=== PATIENT | female | born 1965 | race Hispanic/Latino ===

== ENCOUNTER 2016-10-04 01:20 | Emergency (ER) | payer OTHER ==
[~2016-10-04] VITALS: Ht 167.6 cm; Wt 135.0 kg
[~2016-10-04 01:20] MED LIST: ABILIFY10 MG PO; ALPRAZOLAM0.5 M1 PO; AMOX/K CLAV875 M1 PO; AMOXIL500 MG OR; ATENOLOL50 MG PO; BUSPIRONE15 MG PO; CEPHALEXIN500 M1 PO; CIPRO500 MG OR; CLONAZEPAM0.5 MG PO; CYMBALTA30 MG PO; DOXYCYC MONO100 M1 OR; DOXYCYCL HYC100 MG OR; FLAGYL500 MG OR; FLONASE NASAL50 MCG; FLUOXETINE20 MG PO; FUROSEMIDE20 MG PO; GABAPENTIN300 M2 PO; HYDROCHLORO25 MG/TAB PO; HYDROCHLOROT25 MG PO; LEVOTHYROXIN100 MCG PO; LEVOTHYROXIN150 MC1 PO; LEVOTHYROXIN175 MC1 PO; LEVOTHYROXIN200 MC2 PO; LEVOTHYROXIN200 MCG PO; LEVOTHYROXIN50 MC1 PO; LEVOTHYROXINE300 MCG PO; LISINOPRIL10 MG PO; LITHIUM CARB300 MG PO; LORTAB 10 OR; LORTAB 5 OR; METFORMIN500 MG PO; MIRALAX3350 NF OR; MOTRIN800 MG PO; NAPROSYN500 MG PO; NEXIUM40 M1 PO; NO HOME MEDS; OXCARBAZEPINE600 MG PO; PENICILLN VK500 MG OR; PREDNISONE20 MG OR; PRILOSEC40 MG PO; PROMETHAZINE25 MG PO; PROTONIX40 M2 PO; RISPERDAL1 MG PO; ROBITUSSIN AC10 ML OR; SYNTHROID150 MCG PO; SYNTHROID300 MCG; SYNTHROID50 MCG; TAM75CAP PO; TESSALON PER100 MG PO; TRAZODONE50 MG PO; ULTRAM50 M1 PO; VALIUM5 MG PO; VENLAFAXINE37.5 M1 PO; VENTOLIN HF1 IN; ZITHROMAX250 MG PO
[2016-10-04] MEDS ORDERED: TRAMADOL HCL50 MG PO (01:32)
[2016-10-04 01:51] LABS: URINE BILIRUBIN - DIPSTICK NEGATIVE (NEGATIVE); URINE BLOOD DIPSTICK NEGATIVE (NEGATIVE); URINE CLARITY CLEAR; URINE COLOR YELLOW; URINE GLUCOSE - DIPSTICK NEGATIVE (NEGATIVE); URINE KETONE NEGATIVE (NEGATIVE); URINE LEUK ESTERASE NEGATIVE (NEGATIVE); URINE NITRITE - DIPSTICK NEGATIVE (Negative); URINE PH 6.5 (4.5-8.0); URINE PROTEIN - DIPSTICK NEGATIVE (NEG-TRACE); URINE SPECIFIC GRAVITY 1.015; URINE UROBILINOGEN - DIPSTICK 0.2 E.U./dL (0.2)
[2016-10-04 02:28] LABS: HEMATOCRIT 38.8 % (37.0-47.0); HEMOGLOBIN 12.1 g/dl (12.0-16.0); IMMATURE GRANULOCYTES 0.5 % (0.0-1.0); MEAN CELL VOLUME 81.5 fL CALC (80.0-100.0); MEAN CORPUSCULAR HGB 25.4 pG CALC (26.0-32.0); MEAN CORPUSCULAR HGB CONC 31.2 g/L CALC (32.0-36.0); NEUT# 7.59 thou/uL (2.00-7.15); RED BLOOD COUNT 4.76 mill/uL (4.20-5.60); RED CELL DISTRI WIDTH 14.3 % (11.5-15.5)
[2016-10-04 02:46] LABS: ALBUMIN 4.2 g/dL (3.2-5.0); ALKALINE PHOSPHATASE 176 u/l (38-126); ANION GAP 10 (6-22 (CALC)); BILIRUBIN, TOTAL 0.5 mg/dL (0.0-1.4); BUN 17 mg/dL (7-17); BUN/CREATININE RATIO 24 (12-20 (CALC)); CALCIUM 9.6 mg/dL (8.4-10.2); CARBON DIOXIDE 30 mmol/l (22-30); CHLORIDE 102 mmol/l (95-108); CREATININE 0.7 mg/dL (0.5-1.0); GFR > 60 ML/MIN (>=60 (CALC)); GFR FOR AFR.AMER. > 60 ML/MIN (>=60 (CALC)); GLUCOSE 176 mg/dL (65-105); POTASSIUM 4.3 mmol/l (3.5-5.1); SGOT/AST 50 u/l (14-36); SGPT/ALT 61 u/l (9-52); SODIUM 138 mmol/l (137-146); TOTAL PROTEIN 7.9 g/dL (6.3-8.2)
[2016-10-04 03:15] LABS: AMYLASE 48 u/l (30-110); LIPASE 82 u/l (23-300)
[2016-10-04] MEDS ORDERED: XANAX0.25 MG PO (03:22)
[2016-10-04] MEDS ORDERED: ZOFRAN ODT4 MG PO (03:22)
[2016-10-04 03:50] VITALS: BP 154/79
== END 2016-10-04 03:50 | disposition home or self-care (01) | DRG 880 ==
LOC: ED 01:20
PROVIDERS: Emergency Medicine
DX: F41.9 Anxiety disorder, unspecified (principal); I10 Essential (primary) hypertension; E03.9 Hypothyroidism, unspecified; R42 Dizziness and giddiness; R11.0 Nausea; R50.9 Fever, unspecified; R94.31 Abnormal electrocardiogram [ECG] [EKG]

== ENCOUNTER 2016-11-19 02:04 | Observation (INO) | payer OTHER ==
[2016-11-19] VITALS (7 sets, daily range): BP systolic 93–171; BP diastolic 50–92
[~2016-11-19] VITALS: Ht 167.6 cm; Wt 132.0 kg
[~2016-11-19 02:04] MED LIST changes: +TRAMADOL HCL50 MG PO; +XANAX0.25 MG PO; +ZOFRAN ODT4 MG PO
[2016-11-19] MEDS ORDERED: DICLOFENAC SODI75 MG PO (02:19)
[2016-11-19] MEDS ORDERED: TEMAZEPAM30 MG PO (02:20)
[2016-11-19] MEDS ORDERED: LISINOPRIL20 MG PO (02:20)
[2016-11-19 02:49] LABS: HEMATOCRIT 37.6 % (37.0-47.0); HEMOGLOBIN 11.8 g/dl (12.0-16.0); IMMATURE GRANULOCYTES 0.3 % (0.0-1.0); MEAN CELL VOLUME 81.7 fL CALC (80.0-100.0); MEAN CORPUSCULAR HGB 25.7 pG CALC (26.0-32.0); MEAN CORPUSCULAR HGB CONC 31.4 g/L CALC (32.0-36.0); NEUT# 5.58 thou/uL (2.00-7.15); RED BLOOD COUNT 4.6 mill/uL (4.20-5.60); RED CELL DISTRI WIDTH 14.9 % (11.5-15.5)
[2016-11-19 03:07] LABS: ALBUMIN 3.9 g/dL (3.2-5.0); ALKALINE PHOSPHATASE 171 u/l (38-126); ANION GAP 15 (6-22 (CALC)); BILIRUBIN, TOTAL 0.4 mg/dL (0.0-1.4); BUN 17 mg/dL (7-17); BUN/CREATININE RATIO 29 (12-20 (CALC)); CALCIUM 8.9 mg/dL (8.4-10.2); CARBON DIOXIDE 22 mmol/l (22-30); CHLORIDE 104 mmol/l (95-108); CREATININE 0.6 mg/dL (0.5-1.0); GFR > 60 ML/MIN (>=60 (CALC)); GFR FOR AFR.AMER. > 60 ML/MIN (>=60 (CALC)); GLUCOSE 210 mg/dL (65-105); POTASSIUM 4.3 mmol/l (3.5-5.1); PROTHROMBIN TIME 10.3 SECONDS (9.0-12.5); SGOT/AST 54 u/l (14-36); SGPT/ALT 52 u/l (9-52); SODIUM 137 mmol/l (137-146); TOTAL PROTEIN 7.4 g/dL (6.3-8.2)
[2016-11-19 03:18] LABS: MYOGLOBIN 16 ng/mL (0 - 62)
[2016-11-19 04:52] LABS: URINE BILIRUBIN - DIPSTICK NEGATIVE (NEGATIVE); URINE BLOOD DIPSTICK MODERATE (NEGATIVE); URINE CLARITY CLEAR; URINE COLOR YELLOW; URINE GLUCOSE - DIPSTICK NEGATIVE (NEGATIVE); URINE KETONE NEGATIVE (NEGATIVE); URINE LEUK ESTERASE NEGATIVE (NEGATIVE); URINE NITRITE - DIPSTICK NEGATIVE (Negative); URINE PH 5.5 (4.5-8.0); URINE PROTEIN - DIPSTICK NEGATIVE (NEG-TRACE); URINE SPECIFIC GRAVITY >=1.030; URINE UROBILINOGEN - DIPSTICK 0.2 E.U./dL (0.2)
[2016-11-19 04:55] LABS: BARBITURATES NEGATIVE (NEGATIVE); COCAINE NEGATIVE (NEGATIVE); METHADONE NEGATIVE (NEGATIVE); OXCYCODONE NEGATIVE (NEGATIVE); TETRAHYDROCANNABIONOL NEGATIVE (NEGATIVE); TRICYLIC ANTIDEPRESSANTS NEGATIVE (NEGATIVE)
[2016-11-19 05:03] LABS: URINE BACTERIA RARE hpf; URINE SQUAMOUS EPITHELIAL CELL RARE EPI/hpf (0-FEW); URINE WBC 0-2 WBC/hpf (0-5)
[2016-11-20 04:06] VITALS: BP 125/60
[2016-11-20 05:10] LABS: HEMATOCRIT 39.4 % (37.0-47.0); IMMATURE GRANULOCYTES 0.3 % (0.0-1.0); MEAN CELL VOLUME 84.5 fL CALC (80.0-100.0); MEAN CORPUSCULAR HGB 25.8 pG CALC (26.0-32.0); MEAN CORPUSCULAR HGB CONC 30.5 g/L CALC (32.0-36.0); NEUT# 3.94 thou/uL (2.00-7.15); RED BLOOD COUNT 4.66 mill/uL (4.20-5.60); RED CELL DISTRI WIDTH 14.9 % (11.5-15.5)
[2016-11-20 05:16] LABS: ANION GAP 13 (6-22 (CALC)); BUN 14 mg/dL (7-17); BUN/CREATININE RATIO 24 (12-20 (CALC)); CALCIUM 9.3 mg/dL (8.4-10.2); CARBON DIOXIDE 28 mmol/l (22-30); CHLORIDE 100 mmol/l (95-108); CREATININE 0.6 mg/dL (0.5-1.0); GFR > 60 ML/MIN (>=60 (CALC)); GFR FOR AFR.AMER. > 60 ML/MIN (>=60 (CALC)); GLUCOSE 168 mg/dL (65-105); POTASSIUM 4.5 mmol/l (3.5-5.1); SODIUM 137 mmol/l (137-146)
[2016-11-20 07:30] VITALS: BP 124/71
[2016-11-20 11:23] VITALS: BP 129/80
[2016-11-20 11:59] LABS: TSH, 3RD GENERATION 3.25 uIU/mL (0.47 - 4.68)
[2016-11-20 15:08] VITALS: BP 137/86
[2016-11-20 20:15] VITALS: BP 152/79
[2016-11-21 00:30] VITALS: BP 121/61
[2016-11-21 04:50] VITALS: BP 133/75
[2016-11-21 06:09] LABS: CHOLESTEROL HDL RATIO 4.5 (<4.4 (CALC))
[2016-11-21 07:50] VITALS: BP 136/81
[2016-11-21 11:07] VITALS: BP 133/72
[2016-11-21] MEDS ORDERED: LIPITOR20 MG PO (11:54)
[2016-11-21] MEDS ORDERED: TRAMADOL HCL50 MG PO (11:54)
[2016-11-21] MEDS ORDERED: GLUCOPHAGE500 MG PO (11:54)
== END 2016-11-21 12:38 | disposition home or self-care (01) | DRG 556 ==
LOC: ENPENDDIS → ED 02:04 → ED-I 04:00 → ED 04:54 → MS2 04:55
PROVIDERS: Emergency Medicine; Internal Medicine; Nurse Practitioner Family; ADMIT Internal Medicine; ATTEND Internal Medicine
DX: M79.7 Fibromyalgia (principal); Z68.42 Body mass index [BMI] 45.0-49.9, adult; I10 Essential (primary) hypertension; F45.0 Somatization disorder; E11.9 Type 2 diabetes mellitus without complications; J45.909 Unspecified asthma, uncomplicated; E03.9 Hypothyroidism, unspecified; F41.9 Anxiety disorder, unspecified; F32.9 Major depressive disorder, single episode, unspecified; E66.01 Morbid (severe) obesity due to excess calories; G47.00 Insomnia, unspecified; Z91.14 Patient's other noncompliance with medication regimen; Z79.84 Long term (current) use of oral hypoglycemic drugs; Z82.61 Family history of arthritis
CPT/HCPCS: G0378

== ENCOUNTER 2016-12-28 00:06 | Observation (INO) | payer OTHER ==
[~2016-12-28] VITALS: Ht 167.6 cm; Wt 128.2 kg
[~2016-12-28 00:06] MED LIST changes: +DICLOFENAC SODI75 MG PO; +GLUCOPHAGE500 MG PO; +LIPITOR20 MG PO; +LISINOPRIL20 MG PO; +TEMAZEPAM30 MG PO
[2016-12-28 00:39] LABS: HEMATOCRIT 38.1 % (37.0-47.0); HEMOGLOBIN 12.4 g/dl (12.0-16.0); IMMATURE GRANULOCYTES 0.4 % (0.0-1.0); MEAN CELL VOLUME 82.5 fL CALC (80.0-100.0); MEAN CORPUSCULAR HGB 26.8 pG CALC (26.0-32.0); MEAN CORPUSCULAR HGB CONC 32.5 g/L CALC (32.0-36.0); NEUT# 15.6 thou/uL (2.00-7.15); RED BLOOD COUNT 4.62 mill/uL (4.20-5.60); RED CELL DISTRI WIDTH 14.6 % (11.5-15.5)
[2016-12-28 00:46] LABS: ALBUMIN 4.2 g/dL (3.2-5.0); ALKALINE PHOSPHATASE 194 u/l (38-126); ANION GAP 20 (6-22 (CALC)); BILIRUBIN, TOTAL 0.6 mg/dL (0.0-1.4); BUN 13 mg/dL (7-17); BUN/CREATININE RATIO 22 (12-20 (CALC)); CALCIUM 9.7 mg/dL (8.4-10.2); CARBON DIOXIDE 20 mmol/l (22-30); CHLORIDE 103 mmol/l (95-108); CREATININE 0.6 mg/dL (0.5-1.0); GFR > 60 ML/MIN (>=60 (CALC)); GFR FOR AFR.AMER. > 60 ML/MIN (>=60 (CALC)); GLUCOSE 301 mg/dL (65-105); POTASSIUM 4.4 mmol/l (3.5-5.1); SGOT/AST 58 u/l (14-36); SGPT/ALT 83 u/l (9-52); SODIUM 139 mmol/l (137-146); TOTAL PROTEIN 7.8 g/dL (6.3-8.2)
[2016-12-28] MEDS ORDERED: METFORMIN1000 MG PO (00:54)
[2016-12-28] MEDS ORDERED: LEVOTHYROXINE300 MCG PO (00:55)
[2016-12-28 01:00] LABS: MYOGLOBIN 22 ng/mL (0 - 62)
[2016-12-28 01:11] LABS: URINE BILIRUBIN - DIPSTICK NEGATIVE (NEGATIVE); URINE BLOOD DIPSTICK NEGATIVE (NEGATIVE); URINE CLARITY CLEAR; URINE COLOR YELLOW; URINE GLUCOSE - DIPSTICK >=1000 mg/dL (NEGATIVE); URINE KETONE NEGATIVE (NEGATIVE); URINE LEUK ESTERASE NEGATIVE (NEGATIVE); URINE NITRITE - DIPSTICK NEGATIVE (Negative); URINE PROTEIN - DIPSTICK NEGATIVE (NEG-TRACE); URINE SPECIFIC GRAVITY 1.015; URINE UROBILINOGEN - DIPSTICK 0.2 E.U./dL (0.2)
[2016-12-28 01:57] LABS: TSH, 3RD GENERATION 0.11 uIU/mL (0.47 - 4.68)
[2016-12-28 04:34] LABS: BARBITURATES NEGATIVE (NEGATIVE); COCAINE NEGATIVE (NEGATIVE); METHADONE NEGATIVE (NEGATIVE); OXCYCODONE NEGATIVE (NEGATIVE); TETRAHYDROCANNABIONOL NEGATIVE (NEGATIVE); TRICYLIC ANTIDEPRESSANTS NEGATIVE (NEGATIVE)
[2016-12-28 04:50] VITALS: BP 143/91
[2016-12-28 06:31] LABS: CHOLESTEROL HDL RATIO 3.7 (<4.4 (CALC)); MAGNESIUM 1.8 mg/dL (1.6-2.3)
[2016-12-28 08:55] VITALS: BP 136/72
[2016-12-28 11:23] VITALS: BP 121/72
[2016-12-28 15:47] VITALS: BP 131/76
[2016-12-28 19:15] VITALS: BP 157/86
[2016-12-28 23:35] VITALS: BP 130/90
[2016-12-29 04:25] VITALS: BP 131/85
[2016-12-29 05:28] LABS: HEMATOCRIT 36.8 % (37.0-47.0); HEMOGLOBIN 11.8 g/dl (12.0-16.0); IMMATURE GRANULOCYTES 0.5 % (0.0-1.0); MEAN CELL VOLUME 83.3 fL CALC (80.0-100.0); MEAN CORPUSCULAR HGB 26.7 pG CALC (26.0-32.0); MEAN CORPUSCULAR HGB CONC 32.1 g/L CALC (32.0-36.0); NEUT# 7.7 thou/uL (2.00-7.15); RED BLOOD COUNT 4.42 mill/uL (4.20-5.60); RED CELL DISTRI WIDTH 14.7 % (11.5-15.5)
[2016-12-29 05:39] LABS: ANION GAP 14 (6-22 (CALC)); BUN 13 mg/dL (7-17); BUN/CREATININE RATIO 23 (12-20 (CALC)); CALCIUM 9.4 mg/dL (8.4-10.2); CARBON DIOXIDE 27 mmol/l (22-30); CHLORIDE 100 mmol/l (95-108); CREATININE 0.5 mg/dL (0.5-1.0); GFR > 60 ML/MIN (>=60 (CALC)); GFR FOR AFR.AMER. > 60 ML/MIN (>=60 (CALC)); GLUCOSE 167 mg/dL (65-105); MAGNESIUM 1.7 mg/dL (1.6-2.3); POTASSIUM 4.4 mmol/l (3.5-5.1); SODIUM 137 mmol/l (137-146)
[2016-12-29] MEDS ORDERED: SYNTHROID100 MCG PO (08:35)
[2016-12-29 09:07] VITALS: BP 131/85
== END 2016-12-29 11:00 | disposition home or self-care (01) | DRG 313 ==
LOC: ED 00:06 → ED-I 03:53 → ED 04:09 → MS2 04:10
PROVIDERS: Emergency Medicine; Nurse Practitioner Family; ADMIT Internal Medicine; ATTEND Internal Medicine
DX: R07.2 Precordial pain (principal); E11.65 Type 2 diabetes mellitus with hyperglycemia; I10 Essential (primary) hypertension; Z68.42 Body mass index [BMI] 45.0-49.9, adult; R00.2 Palpitations; J45.909 Unspecified asthma, uncomplicated; E03.9 Hypothyroidism, unspecified; F41.9 Anxiety disorder, unspecified; F32.9 Major depressive disorder, single episode, unspecified; E78.5 Hyperlipidemia, unspecified; M79.7 Fibromyalgia; G47.00 Insomnia, unspecified; E66.9 Obesity, unspecified; G89.29 Other chronic pain; M54.9 Dorsalgia, unspecified; E05.80 Other thyrotoxicosis without thyrotoxic crisis or storm; T38.1X5A Adverse effect of thyroid hormones and substitutes, initial encounter; D72.828 Other elevated white blood cell count; Z79.84 Long term (current) use of oral hypoglycemic drugs; Z91.14 Patient's other noncompliance with medication regimen
CPT/HCPCS: G0378; Q9967

== ENCOUNTER 2017-10-12 18:27 | Observation (INO) | payer OTHER ==
[~2017-10-12] VITALS: Ht 165.1 cm; Wt 121.6 kg
[~2017-10-12 18:27] MED LIST changes: +METFORMIN1000 MG PO; +SYNTHROID100 MCG PO
[2017-10-12 19:32] LABS: HEMATOCRIT 40.4 % (37.0-47.0); HEMOGLOBIN 13.1 g/dl (12.0-16.0); IMMATURE GRANULOCYTES 0.3 % (0.0-1.0); MEAN CELL VOLUME 87.1 fL CALC (80.0-100.0); MEAN CORPUSCULAR HGB 28.2 pG CALC (26.0-32.0); MEAN CORPUSCULAR HGB CONC 32.4 g/L CALC (32.0-36.0); NEUT# 7.49 thou/uL (2.00-7.15); RED BLOOD COUNT 4.64 mill/uL (4.20-5.60); RED CELL DISTRI WIDTH 13.2 % (11.5-15.5)
[2017-10-12 20:03] LABS: URINE BILIRUBIN - DIPSTICK NEGATIVE (NEGATIVE); URINE BLOOD DIPSTICK NEGATIVE (NEGATIVE); URINE COLOR YELLOW; URINE GLUCOSE - DIPSTICK NEGATIVE (NEGATIVE); URINE KETONE NEGATIVE (NEGATIVE); URINE LEUK ESTERASE NEGATIVE (NEGATIVE); URINE NITRITE - DIPSTICK NEGATIVE (Negative); URINE PH 5.5 (4.5-8.0); URINE PROTEIN - DIPSTICK NEGATIVE (NEG-TRACE); URINE UROBILINOGEN - DIPSTICK 0.2 E.U./dL (0.2)
[2017-10-12 20:06] LABS: URINE CLARITY CLEAR
[2017-10-12 20:13] LABS: ACT PARTIAL THROMBO TIME 25.3 SECONDS (20.0-32.5); D-DIMER 0.64 mg/L (0.19-0.60); INTERNATIONAL NORMALIZED RATIO 0.9 RATIO (0.7-1.3); PROTHROMBIN TIME 10.3 SECONDS (9.0-12.5)
[2017-10-12 20:35] LABS: ALBUMIN 4.3 g/dL (3.2-5.0); ALKALINE PHOSPHATASE 164 u/l (38-126); ANION GAP 13 (6-22 (CALC)); BILIRUBIN, TOTAL 0.5 mg/dL (0.0-1.4); BUN 17 mg/dL (7-17); BUN/CREATININE RATIO 24 (12-20 (CALC)); CARBON DIOXIDE 27 mmol/l (22-30); CHLORIDE 99 mmol/l (95-108); CREATININE 0.7 mg/dL (0.5-1.0); GFR > 60 ML/MIN (>=60 (CALC)); GFR FOR AFR.AMER. > 60 ML/MIN (>=60 (CALC)); POTASSIUM 4.3 mmol/l (3.5-5.1); SGOT/AST 26 u/l (14-36); SGPT/ALT 40 u/l (9-52); SODIUM 135 mmol/l (137-146); TOTAL PROTEIN 8.1 g/dL (6.3-8.2)
[2017-10-12 20:47] LABS: MYOGLOBIN 18 ng/mL (0 - 62)
[2017-10-13] VITALS (7 sets, daily range): BP systolic 112–143; BP diastolic 66–88
[2017-10-13 04:38] LABS: CHOLESTEROL HDL RATIO 3.8 (<4.4 (CALC))
[2017-10-13] MEDS ORDERED: ASPIRIN CHEWABL81 MG PO (11:05)
[2017-10-13] MEDS ORDERED: METFORMIN1000 MG PO (11:06)
[2017-10-13] MEDS ORDERED: JARDIANCE25 MG PO (11:07)
[2017-10-14 03:56] VITALS: BP 109/70
[2017-10-14 07:24] VITALS: BP 116/56
[2017-10-14 11:00] VITALS: BP 126/79
== END 2017-10-14 12:07 | disposition home or self-care (01) | DRG 882 ==
LOC: ED 18:27 → ED-I 23:13 → ED 23:41 → MS2 23:42
PROVIDERS: Family Medicine; ADMIT Internal Medicine; ATTEND Internal Medicine
DX: F43.9 Reaction to severe stress, unspecified (principal); I16.0 Hypertensive urgency; I10 Essential (primary) hypertension; Z68.41 Body mass index [BMI] 40.0-44.9, adult; M79.7 Fibromyalgia; E03.9 Hypothyroidism, unspecified; E11.69 Type 2 diabetes mellitus with other specified complication; E78.5 Hyperlipidemia, unspecified; F31.9 Bipolar disorder, unspecified; F41.9 Anxiety disorder, unspecified; J45.909 Unspecified asthma, uncomplicated; E66.9 Obesity, unspecified; F45.0 Somatization disorder; Z91.14 Patient's other noncompliance with medication regimen; Z79.84 Long term (current) use of oral hypoglycemic drugs; R07.9 Chest pain, unspecified
CPT/HCPCS: G0378; Q9967

== ENCOUNTER 2018-03-21 09:24 | Emergency (ER) | payer OTHER ==
[~2018-03-21] VITALS: Ht 165.1 cm; Wt 119.0 kg
[~2018-03-21 09:24] MED LIST changes: +ASPIRIN CHEWABL81 MG PO; +JARDIANCE25 MG PO
[2018-03-21] MEDS ORDERED: FLOXIN OTIC0.3 % AS (10:24)
[2018-03-21 10:35] VITALS: BP 143/89
== END 2018-03-21 10:40 | disposition home or self-care (01) ==
LOC: ED 09:24
DX: T16.2XXA Foreign body in left ear, initial encounter (principal); H92.02 Otalgia, left ear; X58.XXXA Exposure to other specified factors, initial encounter; Y93.E8 Activity, other personal hygiene; Y92.009 Unspecified place in unspecified non-institutional (private) residence as the place of occurrence of the external cause

== ENCOUNTER 2018-07-22 08:18 | Emergency (ER) | payer OTHER ==
[~2018-07-22] VITALS: Ht 165.1 cm; Wt 117.0 kg
[~2018-07-22 08:18] MED LIST changes: +FLOXIN OTIC0.3 % AS
[2018-07-22 11:05] VITALS: BP 129/74
== END 2018-07-22 11:05 | disposition home or self-care (01) ==
LOC: ED 08:18
DX: S76.912A Strain of unspecified muscles, fascia and tendons at thigh level, left thigh, initial encounter (principal); M89.8X5 Other specified disorders of bone, thigh; M79.605 Pain in left leg; M16.12 Unilateral primary osteoarthritis, left hip

== ENCOUNTER 2018-11-05 12:02 | Emergency (ER) | payer OTHER ==
[~2018-11-05] VITALS: Ht 165.1 cm; Wt 105.0 kg
[2018-11-05 12:58] LABS: HEMOGLOBIN 13.8 g/dl (12.0-16.0); IMMATURE GRANULOCYTES 0.4 % (0.0-5.0); MEAN CORPUSCULAR HGB 25.5 pG CALC (26.0-32.0); MEAN CORPUSCULAR HGB CONC 31.4 g/L CALC (32.0-36.0); NEUT# 8.15 thou/uL (2.00-7.15); RED BLOOD COUNT 5.41 mill/uL (4.20-5.60); RED CELL DISTRI WIDTH 12.6 % (11.5-15.5)
[2018-11-05 13:00] LABS: MEAN CELL VOLUME 81.3 fL CALC (80.0-100.0)
[2018-11-05] MEDS ORDERED: INVOKANA300 MG PO (13:05)
[2018-11-05] MEDS ORDERED: METFORMIN500 MG PO (13:05)
[2018-11-05] MEDS ORDERED: SYNTHROID150 MCG PO (13:06)
[2018-11-05 13:15] LABS: ALBUMIN 3.9 g/dL (3.2-5.0); ALKALINE PHOSPHATASE 162 u/l (38-126); ANION GAP 16 (6-22 (CALC)); BILIRUBIN, TOTAL 0.6 mg/dL (0.0-1.4); BUN 14 mg/dL (7-17); BUN/CREATININE RATIO 31 (12-20 (CALC)); CARBON DIOXIDE 23 mmol/l (22-30); CHLORIDE 102 mmol/l (95-108); CREATININE 0.5 mg/dL (0.5-1.0); GFR > 60 ML/MIN (>=60 (CALC)); GFR FOR AFR.AMER. > 60 ML/MIN (>=60 (CALC)); POTASSIUM 4.7 mmol/l (3.5-5.1); SGOT/AST 36 u/l (14-36); SODIUM 137 mmol/l (137-146); TOTAL PROTEIN 7.5 g/dL (6.3-8.2)
[2018-11-05 15:26] LABS: URINE BILIRUBIN - DIPSTICK NEGATIVE (NEGATIVE); URINE BLOOD DIPSTICK NEGATIVE (NEGATIVE); URINE COLOR YELLOW; URINE GLUCOSE - DIPSTICK >=1000 mg/dL (NEGATIVE); URINE KETONE NEGATIVE (NEGATIVE); URINE LEUK ESTERASE NEGATIVE (NEGATIVE); URINE NITRITE - DIPSTICK NEGATIVE (Negative); URINE PH 5.5 (4.5-8.0); URINE PROTEIN - DIPSTICK NEGATIVE (NEG-TRACE); URINE SPECIFIC GRAVITY >=1.030; URINE UROBILINOGEN - DIPSTICK 0.2 E.U./dL (0.2)
[2018-11-05] MEDS ORDERED: ONDANSETRON4 MG PO (17:01)
[2018-11-05] MEDS ORDERED: ANTIVERT PO (17:01)
[2018-11-05 17:31] VITALS: BP 140/76
== END 2018-11-05 17:31 | disposition home or self-care (01) ==
LOC: ED 12:02
PROVIDERS: Emergency Medicine
DX: I95.1 Orthostatic hypotension (principal); R55 Syncope and collapse; R42 Dizziness and giddiness; R11.0 Nausea; R53.1 Weakness; Y93.84 Activity, sleeping; Y92.008 Other place in unspecified non-institutional (private) residence as the place of occurrence of the external cause
CPT/HCPCS: Q9967

== ENCOUNTER 2019-05-21 | Emergency (ER) | payer OTHER ==
[~2019-05-21] MED LIST changes: +ANTIVERT PO; +INVOKANA300 MG PO; +ONDANSETRON4 MG PO
[2019-05-21 09:24] LABS: HEMATOCRIT 43.8 % (37.0-47.0); HEMOGLOBIN 13.7 g/dl (12.0-16.0); IMMATURE GRANULOCYTES 0.4 % (0.0-5.0); MEAN CELL VOLUME 87.4 fL CALC (80.0-100.0); MEAN CORPUSCULAR HGB 27.3 pG CALC (26.0-32.0); MEAN CORPUSCULAR HGB CONC 31.3 g/L CALC (32.0-36.0); NEUT# 7.1 thou/uL (2.00-7.15); RED BLOOD COUNT 5.01 mill/uL (4.20-5.60); RED CELL DISTRI WIDTH 13.9 % (11.5-15.5)
[2019-05-21 09:46] LABS: ALBUMIN 4.1 g/dL (3.2-5.0); ALKALINE PHOSPHATASE 169 u/l (38-126); ANION GAP 10 (6-22 (CALC)); BILIRUBIN, TOTAL 0.8 mg/dL (0.0-1.4); BUN 17 mg/dL (7-17); BUN/CREATININE RATIO 32 (12-20 (CALC)); CHLORIDE 102 mmol/l (95-108); CREATININE 0.5 mg/dL (0.5-1.0); GFR > 60 ML/MIN (>=60 (CALC)); GFR FOR AFR.AMER. > 60 ML/MIN (>=60 (CALC)); POTASSIUM 4.1 mmol/l (3.5-5.1); SGOT/AST 40 u/l (14-36); SODIUM 138 mmol/l (137-146); TOTAL PROTEIN 8.1 g/dL (6.3-8.2)
[2019-05-21 09:51] LABS: CARBON DIOXIDE 30 mmol/l (22-30)
[2019-05-21 09:58] LABS: MYOGLOBIN 35 ng/mL (0 - 62)
[2019-05-21] MEDS ORDERED: NAPROXEN500 MG PO ×2 (10:28)
== END 2019-05-21 10:42 | disposition home or self-care (01) ==
PROVIDERS: Emergency Medicine
DX: M19.042 Primary osteoarthritis, left hand (principal); R42 Dizziness and giddiness; E11.9 Type 2 diabetes mellitus without complications; I10 Essential (primary) hypertension; Z79.84 Long term (current) use of oral hypoglycemic drugs

== ENCOUNTER 2019-10-15 09:43 | Observation (INO) | payer OTHER ==
[~2019-10-15] VITALS: Ht 165.1 cm; Wt 80.0 kg
[~2019-10-15 09:43] MED LIST changes: +NAPROXEN500 MG PO
--- NOTE | 2019-10-15 09:43 | NUR ---
Pt to room # 13 via EMS stretcher
[2019-10-15 10:19] LABS: HEMATOCRIT 42.2 % (37.0-47.0); HEMOGLOBIN 13.8 g/dl (12.0-16.0); IMMATURE GRANULOCYTES 0.6 % (0.0-5.0); MEAN CELL VOLUME 85.3 fL CALC (80.0-100.0); MEAN CORPUSCULAR HGB 27.9 pG CALC (26.0-32.0); MEAN CORPUSCULAR HGB CONC 32.7 g/dL CAL (32.0-36.0); NEUT# 5.95 thou/uL (2.00-7.15); RED BLOOD COUNT 4.95 mill/uL (4.20-5.60); RED CELL DISTRI WIDTH 12.9 % (11.5-15.5)
[2019-10-15 11:13] LABS: ALKALINE PHOSPHATASE 159 u/l (38-126); ANION GAP 10 (6-22 (CALC)); BILIRUBIN, TOTAL 0.7 mg/dL (0.0-1.4); BUN 18 mg/dL (7-17); BUN/CREATININE RATIO 31 (12-20 (CALC)); CARBON DIOXIDE 26 mmol/l (22-30); CHLORIDE 103 mmol/l (95-108); CPK 167 u/l (30-165); CREATININE 0.6 mg/dL (0.5-1.0); GFR > 60 ML/MIN (>=60 (CALC)); GFR FOR AFR.AMER. > 60 ML/MIN (>=60 (CALC)); POTASSIUM 3.8 mmol/l (3.5-5.1); SGOT/AST 53 u/l (14-36); SODIUM 135 mmol/l (137-146); TOTAL PROTEIN 7.8 g/dL (6.3-8.2)
--- NOTE | 2019-10-15 11:55 | NUR ---
PT SLEEPING. RESPS EVEN, UNLABBORED.
--- NOTE | 2019-10-15 12:44 | NUR ---
PT SLEEPING RESPS EVEN, UNLABBORED
--- NOTE | 2019-10-15 13:16 | NUR ---
CALLED ESTELLE PADILLA AT [phone] TO REQUEST MED LIST. DAUGHTER STATES MED LIST IS EXTENSIVE BUT SHE KNOWS THAT MOTHER DIESNT CONSISTENTLY TAKE ALL MEDS. DAUGHTER STATES SHE WILL ASK HER FATHER TO BRING IN HER MED BOTTLES
[2019-10-15] MEDS ORDERED: INVOKANA300 MG PO (13:23)
[2019-10-15] MEDS ORDERED: HYDROCHLOROTH12.5 M1 PO (13:23)
[2019-10-15] MEDS ORDERED: LEVOTHYROXIN175 MC1 PO (13:24)
[2019-10-15] MEDS ORDERED: METFORMIN HCL1000 MG PO (13:24)
--- NOTE | 2019-10-15 13:25 | NUR ---
RECD MED REC CONSULT FROM ER - PT IS UNABLE TO VERIFY HER HOME MEDS, PT WILL BRING THEM IN. PT REPORTS NONCOMPLIANCE. ENTERED MEDS FROM CLAIMS HISTORY
--- NOTE | 2019-10-15 14:46 | NUR ---
PT SLEEEPING. RESPS EVEN,UNLABBORED.
[2019-10-15 15:40] VITALS: BP 127/81
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
[2019-10-15 19:01] VITALS: BP 114/78
--- NOTE | 2019-10-15 19:35 | NUR ---
PT RESTING IN BED, NO SIGNS OF DISTRESS NOTED, RESP EVEN AND UNLABORED. PT ALERT AND ORIENTED X3, DISCUSSED POC, PT AGREES. VOICES NO NEEDS OR COMPLAINTS AT THIS TIME, ASSESSMENT COMPLETED, CALL LIGHT IN REACH,CONTINUE TO MONITOR.
--- NOTE | 2019-10-15 21:13 | NUR ---
PT RESTING IN BED WITH EYES CLOSED, NO SIGNS OF DISTRESS NOTED, RESP EVEN AND UNLABORED. CALL LIGHT IN REACH,CONTINUE TO MONITOR.
[2019-10-15 23:30] VITALS: BP 119/75
--- NOTE | 2019-10-16 | NUR ---
PT RESTING IN BED WITH EYES CLOSED, EASILY AROUSED TO VERBAL STIMULI, VITALS OBTAINED, PT VOICES NO NEEDS OR COMPLAINTS AT THIS TIME, CALL LIGHT IN REACH,CONTINUE TO MONITOR.
[2019-10-16 03:30] VITALS: BP 130/77
--- NOTE | 2019-10-16 03:53 | NUR ---
PT RESTING IN BED, NO SIGNS OF DISTRESS NOTED, RESP EVEN AND UNLABORED. PT VOICES NO NEEDS OR COMPLAINTS, CALL LIGHT IN REACH,CONTINUE TO MONITOR.
--- NOTE | 2019-10-16 05:35 | NUR ---
AM EKG OBTAINED, PT VOICES NO NEEDS OR COMPLAINTS AT THIS TIME, CALL LIGHT IN REACH,CONTINUE TO MONITOR.
[2019-10-16 06:31] LABS: CHOLESTEROL HDL RATIO 3.3 (<4.4 (CALC))
--- NOTE | 2019-10-16 07:25 | NUR ---
REPORT RECEIVED FROM GINA MONTGOMERY;PT APPEARS TO BE SLEEPING IN SEMI FOWLERS POSITION;NO S/S OF DISTRESS NOTED;TELE MONITORING IN PLACE;ACCUCHECK 102, NO COVERAGE NEEDED;ALL SAFETY PRECAUTIONS REMAIN IN PLACE WITH BED IN THE LOWEST POSITION AND CALL LIGHT IN REACH;WILL CONTINUE TO MONITOR
--- NOTE | 2019-10-16 08:45 | NUR ---
PT RESTING IN SEMI FOWLERS POSITION,A&O X3;VS OBTAINED AND ASSESSMENT COMPLETED;PT DENIES ANY CURRENT PAIN OR NEEDS,PAIN SCALE AND REPORTING EDUCATED;RESPIRATIONS EVEN AND UNLABORED ON RA,CLEAR LUNG SOUNDS;ABDOMEN SOFT ON PALPATION AND ACTIVE IN ALL 4 QUADRANTS;STRONG PEDAL PULSES;SKIN INTACT;TELE MONITORING IN PLACE;EMS #20G TO LAC FLUSHED AND PATENT,SITE APPEARS HEALTHY;PT DENIES ANY ADDITIONAL NEEDS AT THIS TIME AND IS ENCOURAGED TO CALL FOR ASSISTANCE IF NEEDED;FALL PRECAUTIONS IN PLACE WITH CALL LIGHT IN REACH;WILL CONTINUE TO MONITOR
[2019-10-16 08:46] VITALS: BP 141/87
--- NOTE | 2019-10-16 10:54 | NUR ---
AT BEDSIDE DISCUSSING POC WITH PT INCLUDING PLANS TO D/C HOME.
--- NOTE | 2019-10-16 10:58 | NUR ---
PT RESTING ON COUCH;RESPIRATIONS EVEN AND UNLABORED ON RA;PT DENIES ANY CURRENT PAIN OR NEEDS;TELE MONITORING IN PLACE;IV SITE PATENT;PT VERBALIZES UNDERSTAND OF DISCHARGE PLAN;ACCUCHECK 141, NO COVERAGE NEEDED;CALL LIGHT IN REACH;WILL CONTINUE TO MONITOR
[2019-10-16 11:03] VITALS: BP 137/85
--- NOTE | 2019-10-16 11:30 | NUR ---
ALL DISCHARGE INSTRUCTIONS PROVIDED AT THIS TIME;PT ENCOURAGED TO F/U WITH PCP IN 1 WEEK,MAINTAIN A STRESS FREE ENVIORMENT AND ANXIETY FREE;PT VERBALIZES UNDERSTANDING AND DENIES ANY ADDITONAL QUESTIONS OR NEEDS;IV SITE REMOVED WITH CATHETER INTACT AND TELE MONITORING D/C AT THIS TIME;WHEELCHAIR TO BE PROVIDED FOR D/C HOME;[facility] TO TRANSPORT PT HOME.
--- NOTE | 2019-10-16 11:37 | NUR ---
Discharge instructions given. Patient verbalizes understanding of same. Discharged in stable condition via Wheelchair to Home with family. All belongings sent with pt. PT TRANSPORTED TO [facility] IN STABLE CONDITION FOR D/C HOME VIA WHEELCHAIR ACCOMPANIED BY STEPHAN CHOWDHURY. ALL BELONGINGS LEFT WITH PT.
== END 2019-10-16 11:37 | disposition home or self-care (01) ==
LOC: ED 09:43 → ED-I 12:12 → ED 12:39 → ED-I 12:40 → MS2 15:18
PROVIDERS: Family Medicine; ADMIT Internal Medicine; ATTEND Internal Medicine
DX: R07.2 Precordial pain (principal); I10 Essential (primary) hypertension; E11.9 Type 2 diabetes mellitus without complications; F41.9 Anxiety disorder, unspecified; E78.5 Hyperlipidemia, unspecified; E03.9 Hypothyroidism, unspecified; Z79.84 Long term (current) use of oral hypoglycemic drugs; Z63.8 Other specified problems related to primary support group; Z20.828 Contact with and (suspected) exposure to other viral communicable diseases
CPT/HCPCS: G0378; J2060

== ENCOUNTER 2020-09-12 16:38 | Emergency (ER) | payer OTHER ==
[~2020-09-12] VITALS: Ht 165.1 cm; Wt 104.0 kg
[~2020-09-12 16:38] MED LIST changes: +HYDROCHLOROTH12.5 M1 PO; +METFORMIN HCL1000 MG PO
[2020-09-12] MEDS ORDERED: KEFLEX500 MG PO (18:49)
[2020-09-12 19:23] VITALS: BP 158/61
== END 2020-09-12 19:23 | disposition home or self-care (01) ==
LOC: ED 16:38
DX: L03.116 Cellulitis of left lower limb (principal); E11.9 Type 2 diabetes mellitus without complications; Z79.84 Long term (current) use of oral hypoglycemic drugs

== ENCOUNTER 2021-06-18 23:37 | Emergency (ER) | payer OTHER ==
[~2021-06-18] VITALS: Ht 165.1 cm; Wt 110.0 kg
[~2021-06-18 23:37] MED LIST changes: +KEFLEX500 MG PO
[2021-06-19 00:19] LABS: HEMOGLOBIN 14.8 g/dl (12.0-16.0); IMMATURE GRANULOCYTES 0.6 % (0.0-5.0); MEAN CELL VOLUME 91.6 fL CALC (80.0-100.0); MEAN CORPUSCULAR HGB 28.8 pG CALC (26.0-32.0); MEAN CORPUSCULAR HGB CONC 31.5 g/dL CAL (32.0-36.0); NEUT# 6.8 thou/uL (2.00-7.15); RED BLOOD COUNT 5.13 mill/uL (4.20-5.60); RED CELL DISTRI WIDTH 13.1 % (11.5-15.5)
[2021-06-19] MEDS ORDERED: ALPRAZOLAM1 MG PO (00:22)
[2021-06-19] MEDS ORDERED: TRULICITY3 MG/0.5 M (00:23)
[2021-06-19] MEDS ORDERED: LEVOTHYROXIN150 MCG PO (00:23)
[2021-06-19 00:36] LABS: ALBUMIN 4.2 g/dL (3.2-5.0); ALKALINE PHOSPHATASE 160 u/l (38-126); AMYLASE 81 u/l (30-110); ANION GAP 12 (6-22 (CALC)); BILIRUBIN, TOTAL 0.8 mg/dL (0.0-1.4); BUN 17 mg/dL (7-17); BUN/CREATININE RATIO 25 (12-20 (CALC)); CARBON DIOXIDE 28 mmol/l (22-30); CHLORIDE 103 mmol/l (95-108); CREATININE 0.7 mg/dL (0.5-1.0); GFR > 60 ML/MIN (>=60 (CALC)); GFR FOR AFR.AMER. > 60 ML/MIN (>=60 (CALC)); LIPASE 53 u/l (23-300); POTASSIUM 3.9 mmol/l (3.5-5.1); SGOT/AST 30 u/l (14-36); SODIUM 139 mmol/l (137-146)
[2021-06-19 00:48] LABS: MYOGLOBIN 28 ng/mL (0 - 62)
[2021-06-19] MEDS ORDERED: PREDNISONE50 MG PO (01:35)
[2021-06-19] MEDS ORDERED: PROTONIX40 M2 PO (01:35)
[2021-06-19 01:42] VITALS: BP 172/85
== END 2021-06-19 01:42 | disposition home or self-care (01) ==
LOC: ED 23:37
PROVIDERS: Family Medicine
DX: K29.70 Gastritis, unspecified, without bleeding (principal); E11.9 Type 2 diabetes mellitus without complications; Z79.84 Long term (current) use of oral hypoglycemic drugs
CPT/HCPCS: Q9967

== ENCOUNTER 2021-09-26 03:30 | Emergency (ER) | payer OTHER ==
[~2021-09-26] VITALS: Ht 165.1 cm; Wt 110.0 kg
[2021-09-26] VITALS (7 sets, daily range): BP systolic 90–193; BP diastolic 61–103
[~2021-09-26 03:30] MED LIST changes: +ALPRAZOLAM1 MG PO; +LEVOTHYROXIN150 MCG PO; +PREDNISONE50 MG PO; +TRULICITY3 MG/0.5 M
[2021-09-26 04:05] LABS: URINE BILIRUBIN - DIPSTICK NEGATIVE (NEGATIVE); URINE BLOOD DIPSTICK NEGATIVE (NEGATIVE); URINE COLOR YELLOW; URINE GLUCOSE - DIPSTICK NEGATIVE (NEGATIVE); URINE KETONE NEGATIVE (NEGATIVE); URINE LEUK ESTERASE NEGATIVE (NEGATIVE); URINE PROTEIN - DIPSTICK NEGATIVE (NEG-TRACE); URINE UROBILINOGEN - DIPSTICK 0.2 E.U./dL (0.2)
[2021-09-26 04:09] LABS: URINE NITRITE - DIPSTICK NEGATIVE (Negative)
[2021-09-26 04:15] LABS: ALBUMIN 4.3 g/dL (3.2-5.0); ALKALINE PHOSPHATASE 168 u/l (38-126); AMYLASE 69 u/l (30-110); ANION GAP 14 (6-22 (CALC)); BUN 19 mg/dL (7-17); BUN/CREATININE RATIO 26 (12-20 (CALC)); CARBON DIOXIDE 30 mmol/l (22-30); CHLORIDE 94 mmol/l (95-108); CREATININE 0.7 mg/dL (0.5-1.0); GFR FOR AFR.AMER. > 60 ML/MIN (>=60 (CALC)); GFR OTHER RACES > 60 ML/MIN (>=60 (CALC)); LIPASE 79 u/l (23-300); POTASSIUM 3.8 mmol/l (3.5-5.1); SGOT/AST 44 u/l (14-36); SODIUM 134 mmol/l (137-146); TOTAL PROTEIN 7.7 g/dL (6.3-8.2)
[2021-09-26 04:16] LABS: BILIRUBIN, TOTAL 1.2 mg/dL (0.0-1.4)
[2021-09-26 04:18] LABS: HEMATOCRIT 45.8 % (37.0-47.0); HEMOGLOBIN 14.7 g/dl (12.0-16.0); IMMATURE GRANULOCYTES 0.2 % (0.0-5.0); MEAN CELL VOLUME 90.2 fL CALC (80.0-100.0); MEAN CORPUSCULAR HGB 28.9 pG CALC (26.0-32.0); MEAN CORPUSCULAR HGB CONC 32.1 g/dL CAL (32.0-36.0); NEUT# 9.28 thou/uL (2.00-7.15); RED BLOOD COUNT 5.08 mill/uL (4.20-5.60); RED CELL DISTRI WIDTH 12.9 % (11.5-15.5)
[2021-09-26 04:27] LABS: MYOGLOBIN 53 ng/mL (0 - 62)
[2021-09-26] MEDS ORDERED: PROTONIX40 M2 PO (06:37)
== END 2021-09-26 06:45 | disposition home or self-care (01) ==
LOC: ED 03:30
PROVIDERS: Family Medicine
DX: K29.70 Gastritis, unspecified, without bleeding (principal); K21.9 Gastro-esophageal reflux disease without esophagitis; E11.9 Type 2 diabetes mellitus without complications; Z79.84 Long term (current) use of oral hypoglycemic drugs; Z20.822 Contact with and (suspected) exposure to COVID-19
CPT/HCPCS: Q9967

== ENCOUNTER 2022-05-25 08:07 | Emergency (ER) | payer OTHER ==
[~2022-05-25] VITALS: Ht 165.1 cm; Wt 113.0 kg
[2022-05-25] MEDS ORDERED: INVOKANA300 MG PO (08:29)
[2022-05-25] MEDS ORDERED: GABAPENTIN100 MG PO (08:30)
[2022-05-25] MEDS ORDERED: TRAMADOL HCL50 MG PO (08:30)
[2022-05-25] MEDS ORDERED: OMEPRAZOLE10 MG PO (08:32)
[2022-05-25 09:09] LABS: BASO% 0.6 % (0-3); HEMATOCRIT 41.5 % (37.0-47.0); HEMOGLOBIN 13.6 g/dl (12.0-16.0); IMMATURE GRANULOCYTES 0.2 % (0.0-5.0); LYMPH% 21.4 % (15-41); MEAN CELL VOLUME 89.1 fL CALC (80.0-100.0); MEAN CORPUSCULAR HGB 29.2 pG CALC (26.0-32.0); MEAN CORPUSCULAR HGB CONC 32.8 g/dL CAL (32.0-36.0); MONO% 8.5 % (2-13); NEUT# 4.38 thou/uL (2.00-7.15); NEUT% 66.3 % (42-76); RED BLOOD COUNT 4.66 mill/uL (4.20-5.60); RED CELL DISTRI WIDTH 12.2 % (11.5-15.5)
[2022-05-25 09:10] LABS: ALBUMIN 4.4 g/dL (3.2-5.0); ALKALINE PHOSPHATASE 155 u/l (38-126); ANION GAP 11 (6-22 (CALC)); BILIRUBIN, TOTAL 0.8 mg/dL (0.02-1.3); BUN 15 mg/dL (7-17); BUN/CREATININE RATIO 24 (12-20 (CALC)); CARBON DIOXIDE 27 mmol/l (22-30); CHLORIDE 100 mmol/l (95-108); CREATININE 0.6 mg/dL (0.5-1.0); GFR FOR AFR.AMER. > 60 ML/MIN (>=60 (CALC)); GFR OTHER RACES > 60 ML/MIN (>=60 (CALC)); LIPASE 54 u/l (23-300); POTASSIUM 3.9 mmol/l (3.5-5.1); SGOT/AST 45 u/l (14-36); SODIUM 135 mmol/l (137-146); TOTAL PROTEIN 8.3 g/dL (6.3-8.2)
[2022-05-25 10:34] LABS: URINE BILIRUBIN - DIPSTICK NEGATIVE (NEGATIVE); URINE BLOOD DIPSTICK NEGATIVE (NEGATIVE); URINE COLOR YELLOW; URINE GLUCOSE - DIPSTICK >=1000 mg/dL (NEGATIVE); URINE KETONE TRACE mg/dL (NEGATIVE); URINE LEUK ESTERASE NEGATIVE (NEGATIVE); URINE PROTEIN - DIPSTICK TRACE mg/dL (NEG-TRACE); URINE SPECIFIC GRAVITY 1.025; URINE UROBILINOGEN - DIPSTICK 0.2 E.U./dL (0.2)
[2022-05-25 10:38] LABS: URINE NITRITE - DIPSTICK NEGATIVE (Negative)
[2022-05-25] MEDS ORDERED: DICYCLOMINE HCL20 MG PO (14:48)
[2022-05-25 15:25] VITALS: BP 152/75
== END 2022-05-25 15:30 | disposition home or self-care (01) ==
LOC: ED 08:07
PROVIDERS: Internal Medicine
DX: R10.9 Unspecified abdominal pain (principal); R74.8 Abnormal levels of other serum enzymes; E11.9 Type 2 diabetes mellitus without complications; Z79.84 Long term (current) use of oral hypoglycemic drugs
CPT/HCPCS: Q9967

== ENCOUNTER 2022-07-17 15:43 | Emergency (ER) | payer OTHER ==
[2022-07-17] VITALS (9 sets, daily range): BP systolic 109–158; BP diastolic 55–79
[~2022-07-17] VITALS: Ht 165.1 cm; Wt 105.0 kg
[~2022-07-17 15:43] MED LIST changes: +DICYCLOMINE HCL20 MG PO; +GABAPENTIN100 MG PO; +OMEPRAZOLE10 MG PO
[2022-07-17 16:11] LABS: BASO% 0.5 % (0-3); HEMATOCRIT 43.5 % (37.0-47.0); HEMOGLOBIN 14.1 g/dl (12.0-16.0); IMMATURE GRANULOCYTES 0.3 % (0.0-5.0); LYMPH% 28.9 % (15-41); MEAN CELL VOLUME 88.8 fL CALC (80.0-100.0); MEAN CORPUSCULAR HGB 28.8 pG CALC (26.0-32.0); MEAN CORPUSCULAR HGB CONC 32.4 g/dL CAL (32.0-36.0); MONO% 6.6 % (2-13); NEUT# 4.84 thou/uL (2.00-7.15); NEUT% 62.7 % (42-76); RED BLOOD COUNT 4.9 mill/uL (4.20-5.60); RED CELL DISTRI WIDTH 12.6 % (11.5-15.5)
[2022-07-17 16:31] LABS: ALBUMIN 4.4 g/dL (3.2-5.0); ALKALINE PHOSPHATASE 193 u/l (38-126); ANION GAP 14 (6-22 (CALC)); BILIRUBIN, TOTAL 0.8 mg/dL (0.02-1.3); BUN 21 mg/dL (7-17); BUN/CREATININE RATIO 33 (12-20 (CALC)); CARBON DIOXIDE 24 mmol/l (22-30); CHLORIDE 106 mmol/l (95-108); CREATININE 0.6 mg/dL (0.5-1.0); GFR FOR AFR.AMER. > 60 ML/MIN (>=60 (CALC)); GFR OTHER RACES > 60 ML/MIN (>=60 (CALC)); LIPASE 62 u/l (23-300); POTASSIUM 3.6 mmol/l (3.5-5.1); SGOT/AST 67 u/l (14-36); SODIUM 139 mmol/l (137-146); TOTAL PROTEIN 7.8 g/dL (6.3-8.2)
[2022-07-17 16:38] LABS: PROTHROMBIN TIME 10.3 SECONDS (9.0-12.5)
[2022-07-17 18:29] LABS: URINE BILIRUBIN - DIPSTICK NEGATIVE (NEGATIVE); URINE BLOOD DIPSTICK NEGATIVE (NEGATIVE); URINE COLOR YELLOW; URINE GLUCOSE - DIPSTICK >=1000 mg/dL (NEGATIVE); URINE KETONE TRACE mg/dL (NEGATIVE); URINE LEUK ESTERASE NEGATIVE (NEGATIVE); URINE PH 5.5 (4.5-8.0); URINE PROTEIN - DIPSTICK NEGATIVE (NEG-TRACE); URINE SPECIFIC GRAVITY >=1.030; URINE UROBILINOGEN - DIPSTICK 0.2 E.U./dL (0.2)
[2022-07-17 18:35] LABS: URINE NITRITE - DIPSTICK NEGATIVE (Negative)
[2022-07-17] MEDS ORDERED: FIORICET PO (18:46)
[2022-07-17] MEDS ORDERED: MEDDOSEPAK PO (18:46)
== END 2022-07-17 19:26 | disposition home or self-care (01) ==
LOC: ED 15:43
PROVIDERS: Nurse Practitioner
DX: R51.9 Headache, unspecified (principal); E11.9 Type 2 diabetes mellitus without complications; Z79.84 Long term (current) use of oral hypoglycemic drugs

== ENCOUNTER 2022-09-14 08:06 | Emergency (ER) | payer OTHER ==
[2022-09-14] VITALS (8 sets, daily range): BP systolic 121–158; BP diastolic 70–90
[~2022-09-14] VITALS: Ht 165.1 cm; Wt 105.4 kg
[~2022-09-14 08:06] MED LIST changes: +FIORICET PO; +MEDDOSEPAK PO
[2022-09-14] MEDS ORDERED: OXYCODONE HCL10 MG PO (08:38)
[2022-09-14] MEDS ORDERED: SUBVENITE100 MG PO (08:39)
[2022-09-14] MEDS ORDERED: METHOCARBAMOL500 MG PO (08:40)
[2022-09-14] MEDS ORDERED: PREGABALIN200 MG PO (08:41)
[2022-09-14] MEDS ORDERED: CYMBALTA60 MG PO (08:41)
== END 2022-09-14 10:46 | disposition home or self-care (01) ==
LOC: ED 08:06
DX: M54.41 Lumbago with sciatica, right side (principal); E11.9 Type 2 diabetes mellitus without complications; Z79.84 Long term (current) use of oral hypoglycemic drugs